=== PATIENT | male | born 1945 | race Caucasian/White ===

== ENCOUNTER 2016-05-16 10:58 | Inpatient (IN) | payer OTHER ==
[~2016-05-16] VITALS: Ht 170.2 cm; Wt 75.8 kg
[~2016-05-16 10:58] MED LIST: ACID REDUCER 1150 MG PO; ADVAIR 250/501 DISK IH; ADVIL,NUPRIN,M200 MG PO; ALPRAZOLAM XR2 MG PO; ALPRAZOLAM2 MG PO; AMLODIPINE BESY10 MG PO; ANTIVERT25 MG PO; ASPIR 8181 M1 PO; ASPIRIN EC325 MG PO; ASPIRIN325 MG PO; ATENOLOL50 MG PO; ATIVAN0.5 MG PO; AVAPRO150 MG PO; Advair HFA 115/21 IH; CARDIZEM CD300 MG PO; CATAPRES0.2 MG PO; CELEXA40 MG PO; CITALOPRAM HBR20 M1 PO; COUMADIN,JANTOVE5 MG PO; DARVOCET-N 1001 EAC1 PO; DILANTIN100 MG PO; FENOFIBRATE145 M1 PO; FERREX 150150 MG PO; FLEXERIL10 MG PO; GEMFIBROZIL600 MG PO; GLUCOPHAGE1000 M1 PO; GLUCOPHAGE1000 MG PO; GLUCOPHAGE500 MG PO; INSULIN SC; KEPPRA500 MG PO; LANOXIN,DIGIT0.25 MG PO; LASIX20 MG PO; LEVAQUIN500 MG PO; LEVEMIR FL100 UNIT/1 SC; LEVEMIR FL100 UNITS/ SC; LEVETIRACETAM500 MG PO; LIPITOR80 MG PO; LISINOPRIL10 MG PO; LISINOPRIL20 MG PO; LO-DOSE ASPIRIN81 M2 PO; LOPRESSOR50 MG PO; LOVASTATIN40 MG PO; MARTINIC1 EACH PO; METFORMIN HCL1000 MG PO; MOTRIN400 MG PO; NAPROXEN500 MG PO; NASONEX17 GM NS; NEURONTIN300 MG PO; NICOTINE PATCH1 EAC2 TD; NIFEDIAC CC30 MG PO; NITROSTAT0.4 MG SL; NORMODYNE200 MG PO; NOVOLOG MI100 UNIT/3 SQ; NOVOLOG MI100 UNIT/4 SQ; NOVOLOG MI100 UNIT/M SC; NOVOLOG PE100 UNITS/ SC; PAROXETINE HCL20 MG PO; PAROXETINE HCL40 MG PO; PAXIL20 MG PO; PHENYTOIN SODI100 M1 PO; RANITIDINE HCL150 M1 PO; RANITIDINE HCL150 MG PO; SIMVASTATIN20 MG PO; SIMVASTATIN40 M1 PO; TRAMADOL HCL50 MG PO; TRAZODONE HCL50 MG PO; TRICOR48 MG PO; TYLENOL EXTRA500 MG PO; Tylenol Regular Stre PO; VASOTEC20 MG PO; VISTARIL50 MG PO; XANAX2 MG PO; Xanax PO; ZANTAC150 M1 PO; ZOFRAN4 MG PO
[2016-05-16 11:37] LABS: ANION GAP 15 MEQ/L (2-14); CHLORIDE 106 mEq/L (99-109); CREATININE 4.7 mg/dL (0.6-1.3); GLUCOSE 113 mg/dL (70-99); ISTAT DEVICE 359068; POTASSIUM > 6.0 mEq/L (3.7-5.4); SODIUM 135 mEq/L (136-147); UREA NITROGEN (BUN) 116 mg/dL (9-23)
[2016-05-16 12:19] LABS: HEMATOCRIT 38.3 % (38.0-50.0); MCHC 31.9 G/DL (30.0-36.0); MCV 97.2 FL (86-99); MEAN PLAT.VOLUME 11.2 uM^3 (9.0-12.4); PLATELET COUNT 194 K/uL (156-360); RBC DIS.WIDTH-SD 48.1 % (39-53); RED BLOOD COUNT 3.94 M/uL (4.00-5.50); WHITE BLOOD COUNT 8.2 K/uL (4.1-10.2)
[2016-05-16 12:32] LABS: ANION GAP 10 MEQ/L (2-14); CHLORIDE 104 MEQ/L (99-109); GFR ESTIMATE (CALCULATED) 14 mL/min/; GLUCOSE 108 mg/dL (70-99); SAMPLE HEMOLYSIS CHECK 0; SAMPLE ICTERIC CHECK 0; SAMPLE LIPEMIA CHECK 0; SODIUM 133 MEQ/L (136-147); UREA NITROGEN (BUN) 89 mg/dL (9-23)
[2016-05-16 12:34] LABS: POTASSIUM 6.6 MEQ/L (3.7-5.4)
[2016-05-16] MEDS ORDERED: PAXIL10 MG PO (14:18)
[2016-05-16] MEDS ORDERED: ATORVASTATIN CA10 MG PO (14:20)
[2016-05-16] MEDS ORDERED: ALPRAZOLAM0.5 MG PO (14:20)
[2016-05-16] MEDS ORDERED: FENOFIBRATE160 M1 PO (14:21)
[2016-05-16 14:40] LABS: ADD MIUA? YES; BILIRUBIN NEGATIVE; BLOOD SMALL; COLOR YELLOW ((YELLOW)); GLUCOSE (STRIP) NEGATIVE; KETONES NEGATIVE; LEUKOCYTES SMALL; NITRITE NEGATIVE; PROTEIN (STRIP) NEGATIVE; UROBILINOGEN 0.2 MG/DL (0.2-1.0)
[2016-05-16 14:48] LABS: BACTERIA NONE SEEN /HPF; EPITHELIAL CELLS NONE SEEN /HPF; MUCUS TRACE /LPF; RED BLOOD CELLS 0-5 /HPF (0-5); UCUL ADDED? NO
[2016-05-16 15:35] LABS: ANION GAP 18 MEQ/L (2-14); CHLORIDE 110 mEq/L (99-109); CREATININE 4.2 mg/dL (0.6-1.3); GLUCOSE 43 mg/dL (70-99); ISTAT DEVICE 359068; POTASSIUM > 6.0 mEq/L (3.7-5.4); SODIUM 140 mEq/L (136-147); UREA NITROGEN (BUN) 105 mg/dL (9-23)
[2016-05-16 16:10] LABS: POINT-OF-CARE METER ID UU13113702
[2016-05-16 16:52] LABS: POINT-OF-CARE METER ID UU13113702
[2016-05-16 16:59] LABS: TROP-I INTERPRETATION NEGATIVE; TROPONIN-I < 0.01 ng/mL (0.0-0.30)
[2016-05-16 19:53] LABS: POINT-OF-CARE METER ID UU13113702
[2016-05-16 20:47] VITALS: BP 90/48
[2016-05-16 22:07] LABS: ANION GAP 9 MEQ/L (2-14); CHLORIDE 113 MEQ/L (99-109); SAMPLE HEMOLYSIS CHECK 0; SAMPLE ICTERIC CHECK 0; SAMPLE LIPEMIA CHECK 0; SODIUM 139 MEQ/L (136-147)
[2016-05-16 22:12] LABS: GLUCOSE 159 mg/dL (70-99); UREA NITROGEN (BUN) 73 mg/dL (9-23)
[2016-05-16 22:15] LABS: TROP-I INTERPRETATION NEGATIVE; TROPONIN-I < 0.01 ng/mL (0.0-0.30)
[2016-05-16 22:19] LABS: GFR ESTIMATE (CALCULATED) 20 mL/min/; POTASSIUM 5.1 MEQ/L (3.7-5.4)
[2016-05-17 02:04] VITALS: BP 98/51
[2016-05-17 04:11] VITALS: BP 127/62
[2016-05-17 07:11] LABS: ANION GAP 10 MEQ/L (2-14); CHLORIDE 117 MEQ/L (99-109); GFR ESTIMATE (CALCULATED) 26 mL/min/; POTASSIUM 5.6 MEQ/L (3.7-5.4); SAMPLE HEMOLYSIS CHECK 0; SAMPLE ICTERIC CHECK 0; SAMPLE LIPEMIA CHECK 0; SODIUM 145 MEQ/L (136-147); UREA NITROGEN (BUN) 59 mg/dL (9-23)
[2016-05-17 07:13] LABS: GLUCOSE 103 mg/dL (70-99)
[2016-05-17 07:15] LABS: MCH 31.5 PG (29.0-34.0); MCHC 31.9 G/DL (30.0-36.0); MCV 98.8 FL (86-99); MEAN PLAT.VOLUME 10.9 uM^3 (9.0-12.4); PLATELET COUNT 246 K/uL (156-360); RBC DIS.WIDTH-CV 14.3 % (11.8-14.6); RBC DIS.WIDTH-SD 51.8 % (39-53); RED BLOOD COUNT 3.24 M/uL (4.00-5.50); WHITE BLOOD COUNT 6.8 K/uL (4.1-10.2)
[2016-05-17 07:48] VITALS: BP 102/55
[2016-05-17 11:13] LABS: POINT-OF-CARE METER ID UU14174216
[2016-05-17 11:32] VITALS: BP 107/56
[2016-05-17 14:31] VITALS: BP 135/58
[2016-05-17 16:26] LABS: POINT-OF-CARE METER ID UU14174216
[2016-05-17 17:47] LABS: POINT-OF-CARE METER ID UU13113698
[2016-05-17 20:29] VITALS: BP 115/58
[2016-05-17 20:41] LABS: INFLUENZA A VIRAL ANTIGEN POSITIVE; INFLUENZA B VIRAL ANTIGEN NEGATIVE
[2016-05-17 23:43] LABS: POINT-OF-CARE METER ID UU14174216
[2016-05-18] VITALS (7 sets, daily range): BP systolic 110–158; BP diastolic 63–78
[2016-05-18 05:47] LABS: POINT-OF-CARE METER ID UU13113698
[2016-05-18 06:35] LABS: ANION GAP 8 MEQ/L (2-14); CHLORIDE 115 MEQ/L (99-109); GFR ESTIMATE (CALCULATED) 38 mL/min/; GLUCOSE 79 mg/dL (70-99); POTASSIUM 5.2 MEQ/L (3.7-5.4); SAMPLE HEMOLYSIS CHECK 0; SAMPLE ICTERIC CHECK 0; SAMPLE LIPEMIA CHECK 0; SODIUM 141 MEQ/L (136-147); UREA NITROGEN (BUN) 32 mg/dL (9-23)
[2016-05-18 11:36] LABS: POINT-OF-CARE METER ID UU13113698
[2016-05-18 13:56] LABS: ADD MIUA? YES; BILIRUBIN NEGATIVE; BLOOD SMALL; COLOR YELLOW ((YELLOW)); GLUCOSE (STRIP) NEGATIVE; KETONES 5; LEUKOCYTES SMALL; NITRITE NEGATIVE; PROTEIN (STRIP) NEGATIVE; SPECIFIC GRAVITY 1.013 (1.000-1.030); UROBILINOGEN 0.2 MG/DL (0.2-1.0)
[2016-05-18 14:16] LABS: BACTERIA NONE SEEN /HPF; EPITHELIAL CELLS RARE /HPF; MUCUS TRACE /LPF; RED BLOOD CELLS NONE SEEN /HPF (0-5); WHITE BLOOD CELLS NONE SEEN /HPF (0-5)
[2016-05-18 16:39] LABS: POINT-OF-CARE METER ID UU14174216
[2016-05-18 21:19] LABS: POINT-OF-CARE METER ID UU13113698
[2016-05-19 04:44] VITALS: BP 150/74
[2016-05-19 07:00] VITALS: BP 117/65
[2016-05-19 07:01] LABS: HEMATOCRIT 31.3 % (38.0-50.0); MCH 31.7 PG (29.0-34.0); MCHC 32.6 G/DL (30.0-36.0); MCV 97.2 FL (86-99); MEAN PLAT.VOLUME 10.2 uM^3 (9.0-12.4); PLATELET COUNT 234 K/uL (156-360); RBC DIS.WIDTH-CV 13.8 % (11.8-14.6); RBC DIS.WIDTH-SD 48.9 % (39-53); RED BLOOD COUNT 3.22 M/uL (4.00-5.50)
[2016-05-19 07:16] LABS: EOSINOPHIL (%) 4.3 % (0-5); EOSINOPHIL COUNT 0.3 K/uL (0-0.3); IMMATURE GRANULOCYTE (%) 2.2 % (0.0-0.7); IMMATURE GRANULOCYTE COUNT 0.1 K/uL; LYMPHOCYTE COUNT 1.2 K/uL (1.0-2.8); MONOCYTE COUNT 0.7 K/uL (0-0.8); NEUTROPHIL (%) 61.8 % (45-76); NEUTROPHIL COUNT 3.7 K/uL (1.8-6.4)
[2016-05-19 07:43] LABS: ANION GAP 9 MEQ/L (2-14); CHLORIDE 109 MEQ/L (99-109); GFR ESTIMATE (CALCULATED) 53 mL/min/; GLUCOSE 66 mg/dL (70-99); POTASSIUM 4.7 MEQ/L (3.7-5.4); SAMPLE HEMOLYSIS CHECK 0; SAMPLE ICTERIC CHECK 0; SAMPLE LIPEMIA CHECK 0; SODIUM 139 MEQ/L (136-147); UREA NITROGEN (BUN) 19 mg/dL (9-23)
[2016-05-19 07:59] LABS: POINT-OF-CARE METER ID UU13113698
[2016-05-19 09:40] LABS: HEMATOLOGY COMMENT 1 REV; USER ID NJR
[2016-05-19 12:18] VITALS: BP 155/73
[2016-05-19 17:22] VITALS: BP 159/88
[2016-05-19 20:00] VITALS: BP 157/86
[2016-05-19 22:04] VITALS: BP 164/92
[2016-05-20 00:30] VITALS: BP 162/90
[2016-05-20 04:18] VITALS: BP 140/67
[2016-05-20 06:51] LABS: EOSINOPHIL (%) 4.1 % (0-5); EOSINOPHIL COUNT 0.3 K/uL (0-0.3); HEMATOCRIT 31.7 % (38.0-50.0); IMMATURE GRANULOCYTE (%) 1.7 % (0.0-0.7); IMMATURE GRANULOCYTE COUNT 0.1 K/uL; LYMPHOCYTE COUNT 1.2 K/uL (1.0-2.8); MCHC 33.4 G/DL (30.0-36.0); MCV 95.8 FL (86-99); MONOCYTE (%) 8.5 % (3-12); MONOCYTE COUNT 0.6 K/uL (0-0.8); NEUTROPHIL COUNT 4.9 K/uL (1.8-6.4); RBC DIS.WIDTH-CV 13.4 % (11.8-14.6); RBC DIS.WIDTH-SD 46.9 % (39-53); RED BLOOD COUNT 3.31 M/uL (4.00-5.50); WHITE BLOOD COUNT 7.1 K/uL (4.1-10.2)
[2016-05-20 07:17] LABS: ANION GAP 11 MEQ/L (2-14); CHLORIDE 108 MEQ/L (99-109); GFR ESTIMATE (CALCULATED) 58 mL/min/; GLUCOSE 97 mg/dL (70-99); MAGNESIUM 1.4 mg/dl (1.3-2.7); POTASSIUM 5.4 MEQ/L (3.7-5.4); SAMPLE HEMOLYSIS CHECK 1; SAMPLE ICTERIC CHECK 0; SAMPLE LIPEMIA CHECK 0; SODIUM 139 MEQ/L (136-147); UREA NITROGEN (BUN) 16 mg/dL (9-23)
[2016-05-20 08:08] LABS: MEAN PLAT.VOLUME 11.1 uM^3 (9.0-12.4); PLAT.SUFFICIENCY ADEQUATE; PLATELET COUNT 245 K/uL (156-360); USER ID STC
[2016-05-20 09:31] VITALS: BP 120/70
[2016-05-20 12:41] VITALS: BP 125/70
[2016-05-20 12:47] LABS: POINT-OF-CARE METER ID UU14149396; POINT-OF-CARE USER ID 606021404
[2016-05-20 17:38] LABS: POINT-OF-CARE METER ID UU14149396; POINT-OF-CARE USER ID 606021404
[2016-05-20 17:48] VITALS: BP 125/80
[2016-05-20 20:00] VITALS: BP 129/75
[2016-05-20 20:41] LABS: POINT-OF-CARE METER ID UU14149396
[2016-05-21 00:20] VITALS: BP 119/64
[2016-05-21 08:00] VITALS: BP 137/83
[2016-05-21 08:01] LABS: ANION GAP 11 MEQ/L (2-14); CHLORIDE 107 MEQ/L (99-109); GFR ESTIMATE (CALCULATED) > 59 mL/min/; GLUCOSE 102 mg/dL (70-99); SAMPLE HEMOLYSIS CHECK 0; SAMPLE ICTERIC CHECK 0; SAMPLE LIPEMIA CHECK 0; SODIUM 139 MEQ/L (136-147); UREA NITROGEN (BUN) 17 mg/dL (9-23)
[2016-05-21 08:07] LABS: POTASSIUM 4.2 MEQ/L (3.7-5.4)
[2016-05-21 08:17] LABS: EOSINOPHIL (%) 4.5 % (0-5); EOSINOPHIL COUNT 0.3 K/uL (0-0.3); HEMATOCRIT 32.8 % (38.0-50.0); IMMATURE GRANULOCYTE (%) 1.5 % (0.0-0.7); IMMATURE GRANULOCYTE COUNT 1.1 K/uL; LYMPHOCYTE COUNT 1.4 K/uL (1.0-2.8); MCH 31.5 PG (29.0-34.0); MCHC 33.5 G/DL (30.0-36.0); MONOCYTE (%) 9.1 % (3-12); MONOCYTE COUNT 0.7 K/uL (0-0.8); NEUTROPHIL (%) 66.5 % (45-76); RBC DIS.WIDTH-CV 13.1 % (11.8-14.6); RBC DIS.WIDTH-SD 42.4 % (39-53); RED BLOOD COUNT 3.49 M/uL (4.00-5.50); WHITE BLOOD COUNT 7.6 K/uL (4.1-10.2)
[2016-05-21 08:23] LABS: MEAN PLAT.VOLUME 10.2 uM^3 (9.0-12.4)
[2016-05-21 08:25] LABS: PLATELET COUNT 320 K/uL (156-360)
[2016-05-21 08:35] LABS: POINT-OF-CARE METER ID UU14149396
[2016-05-21 12:00] VITALS: BP 139/65
[2016-05-21 12:30] LABS: POINT-OF-CARE METER ID UU14149396
[2016-05-21] MEDS ORDERED: OSELTAMIVIR PHO30 MG PO (13:16)
== END 2016-05-21 14:59 | disposition home or self-care (01) | DRG 682 ==
LOC: EME 10:58 → EDOF 14:27 → 4EAST 14:27 → EDOF 16:14 → 4EAST 19:58 → 4SOUTH 05-19 21:35
PROVIDERS: Emergency Medicine; Hospitalist; Internal Medicine; Internal Medicine Nephrology
DX: N17.9 Acute kidney failure, unspecified (principal); R57.1 Hypovolemic shock; E87.1 Hypo-osmolality and hyponatremia; E87.2 Acidosis; J09.X2 Influenza due to identified novel influenza A virus with other respiratory manifestations; E87.5 Hyperkalemia; F17.210 Nicotine dependence, cigarettes, uncomplicated; E11.21 Type 2 diabetes mellitus with diabetic nephropathy; G40.909 Epilepsy, unspecified, not intractable, without status epilepticus; I12.9 Hypertensive chronic kidney disease with stage 1 through stage 4 chronic kidney disease, or unspecified chronic kidney disease; E11.22 Type 2 diabetes mellitus with diabetic chronic kidney disease; E87.8 Other disorders of electrolyte and fluid balance, not elsewhere classified; N18.3 Chronic kidney disease, stage 3 (moderate); G89.4 Chronic pain syndrome; F41.9 Anxiety disorder, unspecified; E11.649 Type 2 diabetes mellitus with hypoglycemia without coma; Z88.6 Allergy status to analgesic agent; Z98.61 Coronary angioplasty status; K76.0 Fatty (change of) liver, not elsewhere classified; I25.10 Atherosclerotic heart disease of native coronary artery without angina pectoris; Z98.1 Arthrodesis status; Z82.49 Family history of ischemic heart disease and other diseases of the circulatory system; Z91.128 Patient's intentional underdosing of medication regimen for other reason; Z79.84 Long term (current) use of oral hypoglycemic drugs
CPT/HCPCS: 36415; 71010; 71250; 76770; 80047; 80048; 80048 91; 80053; 80061; 80069; 81003; 82948; 83036; 83605; 83735; 84100; 84484; 84999; 85025; 85027; 87040; 87086; 87502; 87801; 93005; 93306; 94640; 94644; 94799; 99281; 99285; J0610; J0696; J1644; J1815; J2405; J2543; J3370; J7030; J7042; J7050